=== PATIENT | female | born 1955 | race Caucasian/White ===

== ENCOUNTER 2018-11-09 07:21 | Observation (INO) ==
--- NOTE | 2018-11-03 08:29 | EKG Report ---
Test Performed on : 11/03/2018 08:05:53 AM Test Reason : PAT Blood Pressure : / mmHG Vent. Rate : 071 BPM Atrial Rate : 071 BPM P-R Int : 192 ms QRS Dur : 086 ms QT Int : 418 ms P-R-T Axes : 020 -18 020 degrees QTc Int : 454 ms Sinus rhythm. with occasional premature ventricular complexes. Septal infarct (cited on or before 01-JUN-2018) Nonspecific T wave abnormality Anterior leads Abnormal ECG When compared with ECG of 01-JUN-2018 07:28, Sinus rhythm. has replaced Atrial fibrillation. Vent. rate has decreased BY 57 BPM Nonspecific T wave abnormality now evident in Anterior leads Nonspecific T wave abnormality no longer evident in Lateral leads Confirmed by Bryon WILKES, Jose Antonio ([id number]) on 11/06/2018 11:33:36 AM
[2018-11-03 09:51] LABS: BASO# 0.03 X1000 (0.0-0.2); BASO% 0.7 % (0.0-0.8); EOS% 2.4 % (0.0-10.0); HEMATOCRIT 40.9 % (37.0-47.0); HEMOGLOBIN 13.4 g/dL (12.0-16.0); LYMPH# 1.47 X1000 (1.2-3.4); LYMPH% 34.8 % (20.5-51.1); MCH 29.4 PG (27-31); MCHC 32.8 g/dL (33-37); MCV 89.7 FL (81-99); MONO# 0.25 X1000 (0.11-0.59); MONO% 5.9 % (1.7-9.3); MPV 10.1 FL (7.4-10.4); NEUT# 2.38 X1000 (1.4-6.5); NEUT% 56.2 % (42.2-75.2); PLT 207 X1000 (130-400); RBC 4.56 XMIL (4.2-5.4); RDW 13.7 % (11.5-14.5); WBC 4.23 X1000 (4.8-10.8)
[2018-11-03 09:54] LABS: URINE SOURCE CLEAN CATCH
[2018-11-03 09:59] LABS: INR 0.83; PROTIME 12.1 Seconds (11.0-16.0)
[2018-11-03 10:00] LABS: PTT 25.4 Seconds (22.3-41.8)
[2018-11-03 10:05] LABS: BILIRUBIN URINE NEGATIVE (NEGATIVE); BLOOD URINE NEGATIVE (NEGATIVE); COLOR YELLOW; GLUCOSE URINE NEGATIVE (NEGATIVE); KETONE URINE NEGATIVE (NEGATIVE); LEUKOCYTES URINE SMALL (NEGATIVE); NITRITE URINE NEGATIVE (NEGATIVE); PH URINE 5.5; PROTEIN URINE NEGATIVE (NEGATIVE); SP GRAVITY URINE 1.026; TURBIDITY URINE CLEAR (CLEAR); UROBILINOGEN URINE NORMAL (NORMAL)
[2018-11-03 10:07] LABS: UR EPITHELIAL CELLS <10 /HPF (<10); URINE BACTERIA NEGATIVE /HPF; URINE RBC <10 /HPF (<10); URINE WBC <10 /HPF (<10)
[2018-11-03 10:16] LABS: AGAP 10; BUN 24 mg/dL (8-22); CALCIUM 9.1 mg/dL (8.8-10.2); CHLORIDE 104 mmol/L (98-107); COSMO 286; CREATININE 0.8 mg/dL (0.5-0.9); ESTIMATED GFR > 60; GLUCOSE 105 mg/dL (70-104); POTASSIUM 4.5 mmol/L (3.5-5.1); SODIUM 141 mmol/L (136-145); TCO2 27 mmol/L (25-35)
[2018-11-09] MEDS ORDERED: COLACE ONE (07:45)
[2018-11-09] MEDS ORDERED: REGLAN ONE (07:45)
[2018-11-09] MEDS ORDERED: PEPCID ONE (07:45)
[2018-11-09] MEDS ORDERED: KEFZOL 1 GM/D5W 2 GM/100 ML IVPB ONE (07:46)
[2018-11-09] MEDS ORDERED: LR 1,000 ML ONE (07:46)
[2018-11-09] MEDS ORDERED: LYRICA ONE (07:46)
[2018-11-09] MEDS ORDERED: CELEBREX ONE (07:46)
[2018-11-09] MEDS ORDERED: TOPROL XL ONE (07:54)
[2018-11-09] MEDS ORDERED: DURAMORPH ONE (08:13)
[2018-11-09] MEDS ORDERED: TORADOL ONE (08:13)
[2018-11-09] MEDS ORDERED: VANCOMYCIN ONE (08:13)
[2018-11-09] MEDS ORDERED: MARCAINE 0.25% PF/EPI 1:200,000 ONE (08:13)
[2018-11-09] MEDS ORDERED: SODIUM CHLORIDE 0.9% ONE (08:14)
[2018-11-09] MEDS ORDERED: NEOSPORIN G.U. IRRIGANT ONE (08:14)
[2018-11-09] MEDS ORDERED: CYKLOKAPRON 1,000 MG/NS 2,000 MG/200 ML IVPB ONE (08:14)
[2018-11-09] MEDS ORDERED: EXPAREL 1.3% ONE (08:14)
[2018-11-09] MEDS ORDERED: DIPRIVAN 1% ONE ×3 (08:42→10:28)
[2018-11-09] MEDS ORDERED: VERSED ONE (08:43)
[2018-11-09] MEDS ORDERED: ZOFRAN ONE (09:52)
[2018-11-09] MEDS ORDERED: DECADRON ONE (09:52)
[2018-11-09] MEDS ORDERED: EPHEDRINE ONE (10:00)
[2018-11-09 10:16] LABS: URINE SOURCE CATH
[2018-11-09] MEDS ORDERED: OFIRMEV 1000 MG/ISOTONIC SOLN 1,000 MG/100 ML BOTTLE ONE (10:23)
[2018-11-09 10:33] LABS: BILIRUBIN URINE NEGATIVE (NEGATIVE); BLOOD URINE NEGATIVE (NEGATIVE); COLOR YELLOW; GLUCOSE URINE NEGATIVE (NEGATIVE); KETONE URINE NEGATIVE (NEGATIVE); LEUKOCYTES URINE NEGATIVE (NEGATIVE); NITRITE URINE NEGATIVE (NEGATIVE); PH URINE 5.5; PROTEIN URINE NEGATIVE (NEGATIVE); SP GRAVITY URINE 1.026; TURBIDITY URINE CLEAR (CLEAR); UROBILINOGEN URINE NORMAL (NORMAL)
[2018-11-09 10:34] LABS: UR EPITHELIAL CELLS <10 /HPF (<10); URINE BACTERIA NEGATIVE /HPF; URINE RBC <10 /HPF (<10); URINE WBC <10 /HPF (<10)
[2018-11-09] MEDS ORDERED: NS 1,000 ML ONE (11:42)
--- NOTE | 2018-11-09 12:00 | Diag Imaging Result Doc PS360 ---
EXAM: KNEE 1-2 VIEWS-LEFT 11/09/2018 HISTORY: Left total Knee TECHNIQUE: Left knee portable two views COMMENT: There is a total knee arthroplasty. The AP view is suboptimal. There is no definite evidence of fracture or other acute bony abnormality. IMPRESSION: Postsurgical changes. Electronically signed by Oswaldo Farris 11/09/2018 11:58 AM
[2018-11-09] MEDS ORDERED: OXY IR PO PRN (13:15)
[2018-11-09] MEDS ORDERED: ZOFRAN PO PRN (13:15)
[2018-11-09] MEDS ORDERED: MORPHINE IV PRN ×3 (13:15)
[2018-11-09] MEDS ORDERED: MILK OF MAGNESIA PO PRN (13:15)
--- NOTE | 2018-11-09 14:46 | OPERATIVE NOTE ---
PROCEDURE DATE: 11/09/2018 PREOPERATIVE DIAGNOSIS: Degenerative osteoarthritis of the left knee. POSTOPERATIVE DIAGNOSIS: Degenerative osteoarthritis of the left knee. PROCEDURE: Left total knee arthroplasty with DePuy Delta Attune size 6 narrow posterior stabilized femur, a size 5 tibial tray, a 6 mm rotating platform tibial insert, and a 32 mm medialized anatomic patella. SURGEON: Gerry Ellington MD. DATE PULLER: Vicenta Britton MD. SECOND ASSISTANTS: Ravi Garcia RN and See Cao physician technician assistant student. ANESTHESIA: Spinal. IV FLUIDS: 1500 mL lactated Ringer's. ESTIMATED BLOOD LOSS: 30 mL. TOURNIQUET TIME: 90 minutes at 350 mmHg. COMPLICATIONS: None. INDICATIONS: The patient is a pleasant 63-year-old female with a chronic history of worsening pain and discomfort of the left knee. Her pain has progressed to affect her activities of daily living, and x-rays did reveal significant degenerative osteoarthritis. A recommendation to proceed with left total knee arthroplasty was offered. The risks and benefits of surgery were explained, including the risks of anesthesia, , bleeding, infection, failure to relieve pain, postoperative stiffness, nerve injury, blood clots, and other imponderables. All questions were answered. The patient and family wished to proceed with surgery. DETAILS OF OPERATION: The patient was taken to the operating room and underwent spinal anesthesia. After adequate anesthesia was obtained, she was placed supine on the operating table. The left lower extremity was subsequently prepped and draped in the usual sterile fashion. An Esmarch was used to exsanguinate the left lower extremity, and the tourniquet was inflated to 350 mmHg. A standard anterior incision made with skin knife. Medial and skin envelopes were developed. Standard medial parapatellar arthrotomy was then performed. Patella fat pad was excised. Retractors were then placed. Approximately 1 cm anterior to the PCL insertion, a starting reamer was passed. Intramedullary guide with a distal femoral cutting block was pinned in position. Distal femoral cut was then performed in a standard fashion. A sizing block was then placed and measured size 6. Corresponding pins were placed. Anterior, posterior, and chamfer cuts were then made. Attention then turned to the proximal tibia where using the extramedullary guide, the proximal tibia cutting block was pinned in position. Had good alignment confirmed with the alignment jayro. The proximal tibia was then resected. Medial and lateral menisci were excised. A curved osteotome was used to remove the posterior osteophytes off the distal femur. A spacer block was then placed and had good soft tissue balancing in both flexion and extension. Attention was then turned back to the proximal tibia. Size 5 tibial tray appeared be correct size. This was pinned in position. This was followed by a central reamer and a fin punch. A box cutting guide was then pinned on the distal femur. A box cut was performed. A trial femoral component was then placed and 2 lug holes were drilled. A trial tibial insert was then placed and good soft tissue balancing. Attention then turned to the patella and it was everted, resected in standard fashion. A size 32 appeared to be the correct size. The holes were drilled. A trial patella component was then placed and good patellofemoral tracking. The trial components were then removed. Copious irrigation was then performed with antibiotic pulsatile lavage while vancomycin was mixed with cement on the back table. Sequential cementing was then performed first with the tibial tray and excess cement was removed with a [place]. This was followed by the femoral component and excess cement was removed with a [place]. A trial tibial insert was then placed in full extension and axial loading was maintained while cement cured. The patella was cemented in standard fashion. Patella clamp was placed. While cement was curing, Exparel was placed in deep soft tissue, as well as the subcutaneous tissue. A 1/8 Hemovac drain was placed and was not sewn in. Copious irrigation then performed once again with antibiotic pulsatile lavage. Number 1 Vicryl was then used to repair the arthrotomy followed by 2-0 Vicryl to repair the subcutaneous tissue and skin ying. Adaptic, sterile 4 x 4s, Webril, cryo unit, Jb wrap were applied to the left lower extremity. Patient tolerated the procedure well, was transferred to the recovery room in stable condition. cc: Gerry Ellington MD
[2018-11-09] MEDS: NS 1,000 ML IV SCH (14:52)
[2018-11-09] MEDS: KEFZOL 2 GM/D5W 2 GM/50 ML IVPB IV SCH (17:09)
[2018-11-09] MEDS: OXY IR PO PRN ×2 (17:18→22:17)
[2018-11-09] MEDS ORDERED: FLONASE NAS PRN (18:52)
[2018-11-09] MEDS: LIPITOR PO SCH (20:15)
[2018-11-09] MEDS: PERIDEX MT SCH (20:16)
[2018-11-09] MEDS: COLACE PO SCH (20:17)
[2018-11-09] MEDS ORDERED: ZYRTEC PO SCH (21:00)
[2018-11-10] MEDS: NS 1,000 ML IV SCH (01:33)
[2018-11-10] MEDS: KEFZOL 2 GM/D5W 2 GM/50 ML IVPB IV SCH (01:41)
[2018-11-10] MEDS: OXY IR PO PRN (05:57)
[2018-11-10] MEDS ORDERED: XARELTO PO SCH (06:00)
[2018-11-10 06:35] LABS: HEMOGLOBIN 11.1 g/dL (12.0-16.0)
[2018-11-10 06:55] LABS: AGAP 11; BUN 21 mg/dL (8-22); CALCIUM 8.1 mg/dL (8.8-10.2); CHLORIDE 107 mmol/L (98-107); COSMO 286; CREATININE 0.7 mg/dL (0.5-0.9); ESTIMATED GFR > 60; GLUCOSE 92 mg/dL (70-104); SODIUM 142 mmol/L (136-145); TCO2 24 mmol/L (25-35)
[2018-11-10 08:02] VITALS: BP 109/63
[2018-11-10] MEDS ORDERED: TOPROL XL PO SCH (09:00)
[2018-11-10] MEDS ORDERED: PRINZIDE 20/12.5MG PO SCH (09:00)
[2018-11-10] MEDS ORDERED: CELEXA PO SCH (09:00)
[2018-11-10] MEDS ORDERED: ZETIA PO SCH (09:00)
[2018-11-10] MEDS: PERIDEX MT SCH (09:08)
[2018-11-10] MEDS: LIPITOR PO SCH (09:08)
[2018-11-10] MEDS: COLACE PO SCH (09:08)
--- NOTE | 2018-11-10 10:14 | ORTHOPAEDICS PROGRESS NOTE ---
DATE: 11/10/2018 SUBJECTIVE: The patient is a pleasant, 63-year-old female who is 1 day status post left total knee arthroplasty. Patient is currently resting comfortably, has no complaints. OBJECTIVE: On physical examination of the patient's left lower extremity, her wound looks good. There are no signs or symptoms of infection. Her calf is soft. She is neurovascularly intact distally. Has positive dorsiflexion and plantar flexion. Her hemoglobin is 11.1, hematocrit is 35.0. IMPRESSION: Postoperative day #1 status post left total knee arthroplasty. PLAN: At this point, we will plan on discharging home. We will arrange for physical therapy to begin tomorrow. She will follow up in the office in 12 to 14 days. cc: Gerry Ellington MD
== END 2018-11-10 10:31 | disposition home or self-care (01) ==
LOC: PAT 07:21 → OPS 07:21 → 4N 07:21
PROVIDERS: ADMIT Orthopaedic Surgery Adult Reconstructive Orthopaedic Surgery; ATTEND Orthopaedic Surgery Adult Reconstructive Orthopaedic Surgery
CPT/HCPCS: 73560; 80048; 81001; 85014; 85018; 85025; 85610; 85730; 86850; 86900; 86901; 88305; 88311; 93005; 93010; 94761; 94799; 97110; 97162; 97530; A9270; C9290; J0131; J0690; J1100; J1885; J2250; J2274; J2275; J2405; J3370; J7030; J7120; Q9974; S0020